=== PATIENT | female | born 1975 | race Caucasian/White ===

== ENCOUNTER 2016-07-25 12:41 | Emergency (ER) | payer OTHER ==
[~2016-07-25] VITALS: Ht 157.5 cm; Wt 134.1 kg
[~2016-07-25 12:41] MED LIST: ACET325T14; ALBU18HF
[2016-07-25] MEDS ORDERED: BECL8.7A6 INH (13:38)
[2016-07-25] MEDS ORDERED: LABETALOL 5MG/ML, 20ML IVPush ONE (14:00)
[2016-07-25] MEDS ORDERED: ACETAMINOPHEN 325 MG TABLET ONE (14:06)
[2016-07-25 14:11] LABS: ASPARTATE AMINO TRANSFERASE 19 U/L (15-37); BLOOD UREA NITROGEN 7 mg/dL (7-18)
[2016-07-25 14:16] LABS: IS PT STATUS REG ER OR PRE ER? NO
[2016-07-25] MEDS ORDERED: methylPREDNISolone SOD SUCC 125 MG/2 ML IVPush ONE (14:30)
[2016-07-25] MEDS ORDERED: ACETAMINOPHEN 325 MG TABLET PO ONE (14:30)
[2016-07-25] MEDS ORDERED: ALBUTEROL/IPRATROPIUM 2.5MG/0.5MG, 3 ML NPPB ONE (14:30)
[2016-07-25] MEDS ORDERED: ALBUTEROL/IPRATROPIUM 2.5MG/0.5MG, 3 ML ONE (14:38)
[2016-07-25] MEDS ORDERED: FUROSEMIDE 20 MG/2 ML ONE (14:53)
[2016-07-25] MEDS ORDERED: methylPREDNISolone SOD SUCC 125 MG/2 ML ONE (14:53)
[2016-07-25] MEDS ORDERED: FUROSEMIDE 20 MG/2 ML IV ONE (15:00)
[2016-07-25 17:14] VITALS: BP 119/68
== END 2016-07-25 17:17 | disposition home or self-care (01) ==
LOC: ED 16:04
DX: J44.1 Chronic obstructive pulmonary disease with (acute) exacerbation (principal); R60.0 Localized edema
CPT/HCPCS: 36415; 71010; 80053; 83880; 84484; 84703; 85025; 85379; 93005; 94640; 96374; 96375; 99285; J1940; J2930; J7620

== ENCOUNTER → 2017-05-10 | Outpatient (CLI) | payer OTHER ==
[~2017-05-10] MED LIST changes: +BECL8.7A6 INH
== END | disposition home or self-care (01) ==
LOC: CFH 12:59
PROVIDERS: ATTEND Nurse Practitioner Family
DX: N64.52 Nipple discharge (principal); N63.41 Unspecified lump in right breast, subareolar
CPT/HCPCS: 76642; 77066